=== PATIENT | female | born 1990 | race Hispanic/Latino ===

== ENCOUNTER 2024-07-06 14:37 | Emergency (ER) | payer OTHER, SELFPAY ==
[2024-07-06 14:46] VITALS: BP 124/60; PULSE 83; RESP 18; TEMP 36.5; O2SAT 98; BMI 30.9
[2024-07-06 15:57] LABS: Bacteria Urine None Seen; Culture Indicated Urine Cult Not Indicated; RBC Urine 1-5/HPF (0-5/HPF); Squamous Epithelial Cell Urine None Seen (0-5/HPF); Urine Volume 10mL (spun); WBC Urine None Seen (0-5/HPF)
[2024-07-06] MEDS: CYCLOBENZAPRINE 10 MG TABLET PO (17:00)
--- NOTE | 2024-07-06 17:01 | ED.BACK ---
HPI - Back Pain/Injury <Amanda Finley PA-C - Last Filed: 07/06/24 17:29> General Chief Complaint: Back Pain/Injury Stated Complaint: lower back pain Time Seen by Provider: 07/06/24 16:14 Source: patient History of Present Illness HPI Narrative: Patient is a pleasant 34-year-old female that presents to the emergency room department with sudden onset of lower lumbar discomfort and pain when she bent over to put her pants on. No other symptoms. Took ibuprofen 400 mg prior to presenting to the emergency department. No red flag symptoms. No other physical complaints. Related Data Previous Rx's Medication Instructions Recorded cyclobenzaprine 10 mg tablet 10 mg PO TID #15 tabs 07/06/24 Allergies Allergy/AdvReac Type Severity Reaction Status Date / Time No Known Drug Allergies Allergy Verified 07/06/24 14:49 Review of Systems <Amanda Finley PA-C - Last Filed: 07/06/24 17:29> Review of Systems Narrative: Negative except as above Musculoskeletal Comments: Lower lumbar back pain with onset after bad body mechanics Patient History <Amanda Finley PA-C - Last Filed: 07/06/24 17:29> Social History Smoking Status: Never smoker Smoking Status: Never smoker alcohol intake frequency: a few times a week Substance Use Type: does not use Exam <Amanda Finley PA-C - Last Filed: 07/06/24 17:29> Initial Vital Signs Initial Vital Signs: Vital Signs Temperature 97.7 F 07/06/24 14:46 Pulse Rate 83 07/06/24 14:46 Respiratory Rate 18 07/06/24 14:46 Blood Pressure 124/60 07/06/24 14:46 Pulse Oximetry 98 07/06/24 14:46 Oxygen Delivery Method Room Air 07/06/24 14:46 Reviewed Const General: cooperative, healthy appearing, well developed, well groomed, No acute distress, No in distress and other (Position of comfort right lateral position on the bed) Eyes General: Yes appearance normal, both eyes and all related structures Pupils: PERRL EOM: EOM intact bilaterally Back/Spine/Pelvis Back: normal to inspection, back tenderness and No CVA tenderness Thoracic/Lumbar Spine: thoracic and lumbar spine normal to inspection, pain with thoraco-lumbar ROM, paraspinal tenderness, thoraco-lumbar ROM limited, thoraco-lumbar spasm and straight leg raise positive (Right-sided) Skin Other: Warm pink and dry Neuro Other: Cranial nerves are grossly intact Extrem Other: Range of motion of the upper extremities, strength, pulses, cap refill preserved, limited range of motion of the lower extremities because it exacerbates her back pain. Pulses are present fall. Cap refill is preserved. Psych Other: Appearance, mental status, speech, movement, mood, affect, attitude, thought process, thought content and judgment are all within normal limits. Position of comfort is right lateral, exam is done right lateral. <Lisbeth Black MD - Last Filed: 07/06/24 18:58> Initial Vital Signs Initial Vital Signs: Vital Signs Temperature 97.7 F 07/06/24 14:46 Pulse Rate 83 07/06/24 14:46 Respiratory Rate 18 07/06/24 14:46 Blood Pressure 124/60 07/06/24 14:46 Pulse Oximetry 98 07/06/24 14:46 Oxygen Delivery Method Room Air 07/06/24 14:46 Scores <Amanda Finley PA-C - Last Filed: 07/06/24 17:29> GCS Citation: 15 Course <Amanda Finley PA-C - Last Filed: 07/06/24 17:29> Orders Ordered: ED Orders 07/06/24 14:50 Urine Microscopic Stat Discontinued Medications Cyclobenzaprine HCl (Cyclobenzaprine 10 Mg Tablet) 10 mg PO NOW ONE Stop: 07/06/24 16:57 Last Admin: 07/06/24 17:00 Dose: 10 mg Documented By: KELSEY Reevaluation(s) Reevaluation #1: Patient given p.o. Flexeril had 400 mg of ibuprofen prior to being seen here in the emergency department Vital Signs Vital signs: Vital Signs - 8 hr 07/06/24 14:46 07/06/24 17:09 Temperature 97.7 F Pulse Rate 83 80 Respiratory Rate 18 16 Blood Pressure 124/60 124/58 L Pulse Oximetry 98 99 Oxygen Delivery Method Room Air Room Air Reviewed <Lisbeth Black MD - Last Filed: 07/06/24 18:58> Orders Ordered: ED Orders 07/06/24 14:50 Urine Microscopic Stat Discontinued Medications Cyclobenzaprine HCl (Cyclobenzaprine 10 Mg Tablet) 10 mg PO NOW ONE Stop: 07/06/24 16:57 Last Admin: 07/06/24 17:00 Dose: 10 mg Documented By: KELSEY Vital Signs Vital signs: Vital Signs - 8 hr 07/06/24 14:46 07/06/24 17:09 Temperature 97.7 F Pulse Rate 83 80 Respiratory Rate 18 16 Blood Pressure 124/60 124/58 L Pulse Oximetry 98 99 Oxygen Delivery Method Room Air Room Air MDM - Back Pain/Injury <Amanda Finley PA-C - Last Filed: 07/06/24 17:29> Lab Data Labs: Lab Results 07/06/24 Range/Units 14:50 Urine RBC 1-5/hpf (0-5/HPF) Urine WBC None seen (0-5/HPF) Ur Squamous Epith Cells None seen (0-5/HPF) Urine Bacteria None seen (None) Ur Culture Indicated? Cult not indicated Vol Urine Centrifuged 10ml (spun) Point of Care Testing Test Results Negative Urine Dip Bedside Urine Glucose Negative Bedside Urine Bilirubin - Negative Bedside Urine Ketone - Negative Urine Specific [place] 1.015 Bedside Urine Occult Blood ++ Bedside Urine pH 6.0 Bedside Urine Protein - Negative Bedside Urine Urobilinogen - Negative Bedside Urine Nitrite - Negative Bedside Urine Leukocytes - Negative Esterase Reviewed negative for infection negative test MDM Narrative Medical decision making narrative: 34-year-old female lower lumbar back spasm, associated with poor body mechanics. Patient took ibuprofen prior to being seen here in the emergency department. Patient given Flexeril p.o. prior to discharge Reviewed urine with her Reviewed test with her Work note Supportive therapy education, ED precautions Differential diagnosis; back spasm/lumbar spasm, back strain due to poor body mechanics <Lisbeth Black MD - Last Filed: 07/06/24 18:58> Lab Data Labs: Lab Results 07/06/24 Range/Units 14:50 Urine RBC 1-5/hpf (0-5/HPF) Urine WBC None seen (0-5/HPF) Ur Squamous Epith Cells None seen (0-5/HPF) Urine Bacteria None seen (None) Ur Culture Indicated? Cult not indicated Vol Urine Centrifuged 10ml (spun) Point of Care Testing Test Results Negative Urine Dip Bedside Urine Glucose Negative Bedside Urine Bilirubin - Negative Bedside Urine Ketone - Negative Urine Specific [place] 1.015 Bedside Urine Occult Blood ++ Bedside Urine pH 6.0 Bedside Urine Protein - Negative Bedside Urine Urobilinogen - Negative Bedside Urine Nitrite - Negative Bedside Urine Leukocytes - Negative Esterase Discharge Plan Departure Patient Disposition: Home Clinical Impression: Strain of lumbar region Qualifiers: Encounter type: initial encounter Qualified Code(s): S39.012A - Strain of muscle, fascia and tendon of lower back, initial encounter Instructions: DI for Back Spasm Activity Restrictions/Additional Instructions: Ice for the 1st 72 hours That ice and heat No drinking or driving or using recreational drug use with a muscle relaxer [id number] ibuprofen, Tylenol, Aleve, naproxen, Advil for discomfort and pain After the 72 hours then you can use heat Consider topical preparations Biofreeze, Aspercreme, lidocaine, Salonpas, diclofenac/Voltaren. This usually last anywhere from 5-7 days. Keep active Slow stretching The worsening that you can possibly do is go home and just laid down the back than stiffens up and you feel worse when you get up Follow up with her primary to the office Return to the emergency room department as needed Prescriptions: New cyclobenzaprine 10 mg tablet 10 mg PO TID Qty: 15 0RF Stand Alone Forms: Patient Portal/API, Work Release Note ED Sign-out <Lisbeth Black MD - Last Filed: 07/06/24 18:58> Cosign ED Attending Cosignature Attestation: I was immediately available in the department for consultation throughout this patient's visit. Lisbeth Black MD
[2024-07-06 17:09] VITALS: BP 124/58; PULSE 80; RESP 16; O2SAT 99
== END 2024-07-06 17:10 | disposition home or self-care (01) ==
PROVIDERS: Emergency Medicine; Emergency Provider Physician Assistant
DX: S39.012A Strain of muscle, fascia and tendon of lower back, initial encounter (principal)
CPT/HCPCS: 81003; 81015; 81025; 99283